=== PATIENT | female | born 1990 | race Caucasian/White ===

== ENCOUNTER 2017-11-18 20:23 | Day surgery (SDC) | payer OTHER ==
[2017-11-18 20:54] VITALS: BMI 31.6
[2017-11-18 21:00] VITALS: TEMP 98.6
--- NOTE | 2017-11-18 21:16 | PDOC.LDHP ---
Labor and Delivery H&P Chief complaint: contractions HPI: Patient is a 27yo, recent immigrant from [place], at 40.1 by 18w1d brian presents with ctx since 0600 that have been every 30 min at first and increased in frequency with some associated discomfort, although she reports they are not strong or extremely painful. She reports yellow vaginal discharge that is thick and mucousy that started about 6h top former. She denies VB, LOF, decreased FM, OBRIEN, scotoma, fever/chills, chest pain, SOB, abd pain, N/V/D, LE swelling, and LE pain. A ten point ROS was performed and negative other than those discussed above. Current gestational age (weeks): 40 (40.1) Due date: 11/17/17 Dating criteria: second trimester ultrasound Grav: 2 Para: 1 OB History Details: 1st : Csection for "low fluid" in [place] with low lying transverse scar Current complications: none Abnormal US findings: No Current medications: pre-yusef vitamins Previous surgical history: low tranverse CS Social history: none - Physical Exam Vital signs reviewed and normal: yes General: NAD, resting, other (talking through ctx) Heart: RRR Lungs: CTAB Abdomen: gravid Extremeties: no edema FHT: category 1 [place] contractions every: q7-8min - Vaginal Exam cm dilated: 1 Effacement: 0% Station: -2 - OB Labs Blood type: O RH: positive Antibody Screen: negative HIV: negative RPR: negative HEPSAg: negative 1 hour GCT: negative GBS: unknown Urine drug screen: not done Rubella: immune - Assessment 27yo at 40.1 by 18.1w brian presents with ctx since 0600. sIUP: IOL reviewed, wnl GBS unk: term, will need chart reviewed on future admission for lab and monitoring Immigration from [place]: quantgold neg, zika neg, dengue fever neg, water treatment technician used for HPI. Labor: Cat 1 strip, Ctx q7-8 min but not painful, talking through them and SVE /. Vaginal d/c sounds like mucousy show. Patient would like to go home. She was given precautions to return to L&D and will be sent home. She has f/u scheduled at [facility] and a balloon induction scheduled on 11/21. Of note, patient desires TOLAC, again discussed risks which she understands. - Plan Plan: observation in L&D <Michelle Caban - Last Filed: 11/18/17 22:05> <Jef Walden - Last Filed: 11/19/17 08:05> Allergies/Adverse Reactions: Allergies Allergy/AdvReac Type Severity Reaction Status Date / Time No Known Allergies Allergy Verified 11/18/17 21:01 Attending Addendum - Attending Addendum Date/Time: 11/19/17 0805 I personally evaluated the patient and discussed the management with Dr. Caban I agree with the History, Examination, Assessment and Plan documented above with any addition or exceptions noted below. <Jef Walden - Last Filed: 11/19/17 08:05>
[2017-11-18 23:14] VITALS: BP 109/67
== END 2017-11-18 22:55 | disposition home or self-care (01) ==
LOC: L&D/OP 20:23
PROVIDERS: ATTEND Obstetrics & Gynecology
DX: O47.1 False labor at or after 37 completed weeks of gestation (principal); Z3A.40 40 weeks gestation of pregnancy; Z98.890 Other specified postprocedural states
CPT/HCPCS: 99283

== ENCOUNTER 2017-11-20 06:20 | Inpatient (IN) | payer MEDICAID, OTHER, SELFPAY ==
[2017-11-20 06:59] VITALS: BMI 31.6
[2017-11-20] MEDS ORDERED: NS / Oxytocin 40 units/1000ml 1,000 ML IV PRN (07:49)
[2017-11-20] MEDS ORDERED: Misoprostol 200 MCG TAB PR PRN (07:49)
[2017-11-20] MEDS ORDERED: Lidocaine 1% (PF) 30 ML VIAL SC PRN (07:49)
[2017-11-20] MEDS ORDERED: Ondansetron HCl/PF 4 MG/2 ML Vial IVP PRN ×4 (07:49→22:44)
[2017-11-20] MEDS ORDERED: Promethazine HCl 25 MG/ML VIAL IM PRN ×3 (07:49→22:44)
[2017-11-20] MEDS ORDERED: Acetaminophen 500 MG TAB PO PRN (07:49)
[2017-11-20] MEDS ORDERED: Ibuprofen 800 MG TAB PO PRN (07:49)
[2017-11-20] MEDS ORDERED: Butorphanol Tartrate 1 MG/ML VIAL SLOW IVP PRN (07:49)
--- NOTE | 2017-11-20 07:53 | PDOC.LDHP ---
Labor and Delivery H&P Chief complaint: contractions HPI: Patient is a 27yo, recent immigrant from [place], at 40.1 by 18w1d sono presents with ctx that have increased in frequency and severity since about 0200. She states she feels the contractions less than 5 minutes apart. She has had some bloody show since last night, no collado of fluids, still feels baby moving. She denies Headache, SOB, visual changes, swelling, fevers, or N/V/D. Current gestational age (weeks): 40 (40.3) Due date: 11/17/17 Dating criteria: last menstrual period, second trimester ultrasound Grav: 2 Para: 1 OB History Details: History of C/S 2/ "low fluid" in [place] on 10/10/15 Scar is low transverse Uncomplicated course, good care Current complications: none Abnormal US findings: No Current medications: pre-yusef vitamins Previous surgical history: low tranverse CS Social history: none - Physical Exam Vital signs reviewed and normal: yes General: NAD, resting, breathing through contractions Heart: RRR Lungs: nonlabored breathing Abdomen: NTTP Extremeties: no edema FHT: category 1 [place] contractions every: 3 minutes - Vaginal Exam cm dilated: 3 Effacement: 90% Station: -3 - OB Labs Blood type: O RH: positive Antibody Screen: negative HIV: negative RPR: negative HEPSAg: negative 1 hour GCT: negative GBS: negative Urine drug screen: not done Rubella: immune - Assessment L&D Assessment: term patient in labor TOLAC - Plan Plan: admit to L&D -: # TOLAC - discussed risks of TOLAC, patient is in understanding may need to do C/S if indicated - 62% chance of success per MFM calculator - IOB labs negative, dating by 18.1 wk US - Anatomy scan unremarkable, hadlock 43% - Consult anesthesia for epidural placement - labor checks q2 hours <Nabor Kuhn - Last Filed: 11/20/17 07:53> - Plan -: At 0840 I evelauated the patient at bedside. I reviewed with her and Dr Kuhn at bedside TOLAC and explained risks and benefits. She is also aware that an elective repeat CS can be performed. She desires TOLAC. Risks of uterine injury/ rupture, decelarations, need for urgent cesrean wityh TOLAC reviewed. Her first CS was not due to FTP but was due to oligo per her verbal report. Had been cleared for TOLAC previously ([facility]). Monitors reviewed at bedside. We will watch closely. Still in latent phase. ACOG Bulletin on from Mar 2017 reviewed with Hattie. <Dirk Reza - Last Filed: 11/20/17 08:46> Allergies/Adverse Reactions: Allergies Allergy/AdvReac Type Severity Reaction Status Date / Time No Known Allergies Allergy Verified 11/20/17 06:53
[2017-11-20] MEDS: Lactated Ringer's 1,000 ML IV SCH ×4 (07:55→19:54)
[2017-11-20 08:24] LABS: Hemoglobin 14.9 g/dL (12.0-16.0); Mean Corpuscular Hemoglobin 32.3 pg (27.0-31.0); Mean Corpuscular Volume 92.4 fL (78.0-98.0); Mean Platelet Volume 8.1 fL (7.4-10.4); Platelet Count 186 thou/uL (130-400); RBC Distribution Width 12.4 % (11.5-14.5); Red Blood Cell (RBC) Count 4.62 mill/uL (4.20-5.40); White Blood Cell (WBC) Count 12.2 thou/uL (4.8-10.8)
--- NOTE | 2017-11-20 08:45 | PDOC.LDPN ---
Labor & Delivery Progress Note - Subjective Subjective: comfortable - Objective Vital signs reviewed and normal: yes General: NAD, resting Dilation: 3 Effacement: 90% Station: -3 FHT: category 2, late decelerations [place] contractions every: q2-3 minutes - Assessment (1) Term Code(s): Z34.80 - ENCOUNTER FOR SUPRVSN OF NORMAL , UNSP TRIMESTER Current Visit: Yes Status: Acute (2) Onset (spontaneous) of labor after 37 completed weeks of gestation but before 39 completed weeks gestation, with delivery by (planned) section , delivered, with mention of complication Code(s): O75.82 - ONSET LABOR 37-39 WEEKS, W DEL BY (PLANNED) SECTION Current Visit: Yes Status: Acute (3) History of delivery Code(s): Z98.891 - HISTORY OF UTERINE SCAR FROM PREVIOUS SURGERY Current Visit : Yes Status: Acute Plan: continue plan of care -: # TOLAC - unchanged from last check, /-3/soft/posterior - late decels noted on monitoring - will watch closely, consider AROM for placement of IUPC/FSE - latent phase, will continue to monitor and consider augmentation if indicated - consult anesthesia for placement of epidural
[2017-11-20] MEDS ORDERED: Lidocaine 1% (PF) 30 ML VIAL ONE (08:47)
[2017-11-20] MEDS ORDERED: DISCONTINUE ALL PREVIOUS NARCOTICS FS SCH (09:00)
[2017-11-20] MEDS ORDERED: Bupivacaine/Epinephrine 0.25% 30 ML VIAL ONE (09:00)
[2017-11-20 09:01] LABS: Syphilis Antibody Nonreactive (Nonreactive); Syphilis Antibody Index 0.04 S/CO (<1.00 Non-Reactive)
[2017-11-20 09:02] LABS: HBSAg Index 0.17 S/CO (0-0.99); Hep B Surf Ag Non-Reactive S/CO (NonReactive)
[2017-11-20] MEDS: Bupivacaine 0.75% 13.4 ML, fentaNYL Citrate/PF 400 MCG in Sodium Chloride 0.9% 78.6 ML EPIDURAL SCH ×2 (10:44→18:29)
--- NOTE | 2017-11-20 10:48 | PDOC.EVN ---
Event Note - Event Note Event Note: Strip check with Buse now. CX now 5cm Will order 500ml IVF bolus due to mild hypotension, likely from vasodilation s/ p VANESSA
[2017-11-20] MEDS ORDERED: Lactated Ringer's 500 ML IV PRN (11:48)
[2017-11-20] MEDS ORDERED: diphenhydrAMINE 50 MG/ML VIAL IVP PRN ×2 (11:48→22:44)
[2017-11-20] MEDS ORDERED: Naloxone HCl 0.4 mg/ml Vial IVP PRN ×4 (11:48→22:44)
[2017-11-20] MEDS ORDERED: Eucerin (Mineral Oil/Petrolatum,White) 30 gm Jar TOP PRN ×2 (11:48→22:44)
[2017-11-20] MEDS ORDERED: Acetaminophen 325 MG TAB PO PRN (11:48)
[2017-11-20] MEDS ORDERED: ePHEDrine/0.9% NaCl/PF SYRINGE 50 mg/10 ml SLOW IVP PRN (11:48)
[2017-11-20] MEDS ORDERED: Communication Order-Pharmacy FS SCH ×2 (12:00→22:45)
[2017-11-20] MEDS ORDERED: fentaNYL Citrate/PF 400 MCG, Bupivacaine 0.5% 20 ML in Sodium Chloride 0.9% 72 ML EPIDURAL SCH (12:00)
--- NOTE | 2017-11-20 12:45 | PDOC.LDPN ---
Labor & Delivery Progress Note - Subjective Subjective: comfortable - Objective Vital signs reviewed and normal: yes (BP: 98/51) General: NAD Dilation: 5 Effacement: 90% Station: -2 FHT: category 2, late decelerations (on/off) [place] contractions every: 2-3 minutes - Assessment (1) Term Code(s): Z34.80 - ENCOUNTER FOR SUPRVSN OF NORMAL , UNSP TRIMESTER Current Visit: Yes Status: Acute (2) Onset (spontaneous) of labor after 37 completed weeks of gestation but before 39 completed weeks gestation, with delivery by (planned) section , delivered, with mention of complication Code(s): O75.82 - ONSET LABOR 37-39 WEEKS, W DEL BY (PLANNED) SECTION Current Visit: Yes Status: Acute (3) History of delivery Code(s): Z98.891 - HISTORY OF UTERINE SCAR FROM PREVIOUS SURGERY Current Visit : Yes Status: Acute Plan: continue plan of care -: # TOLAC - unchanged from last check, /-2/soft/mid - late decels on and off again, changing positions frequently - if unchanged at next check will plan for AROM - veronica frequently, pit not indicated at this time - epidural in place
--- NOTE | 2017-11-20 13:24 | PDOC.LDPN ---
Labor & Delivery Progress Note - Subjective Subjective: comfortable - Objective Vital signs reviewed and normal: yes General: NAD Effacement: 90% Station: 0 FHT: category 2, late decelerations [place] contractions every: 3-4 min - Assessment (1) Term Code(s): Z34.80 - ENCOUNTER FOR SUPRVSN OF NORMAL , UNSP TRIMESTER Current Visit: Yes Status: Acute (2) Onset (spontaneous) of labor after 37 completed weeks of gestation but before 39 completed weeks gestation, with delivery by (planned) section , delivered, with mention of complication Code(s): O75.82 - ONSET LABOR 37-39 WEEKS, W DEL BY (PLANNED) SECTION Current Visit: Yes Status: Acute (3) History of delivery Code(s): Z98.891 - HISTORY OF UTERINE SCAR FROM PREVIOUS SURGERY Current Visit : Yes Status: Acute Plan: continue plan of care -: # TOLAC - progressed to /0 - bloody show - Dr. Reza checked patient 2/2 period of decreased variability, resolved with position change - late decels still on and off again, continue changing positions frequently - Membranes intact - veronica frequently, pit not indicated at this time - epidural in place
--- NOTE | 2017-11-20 14:37 | PDOC.LDPN ---
Labor & Delivery Progress Note - Subjective Subjective: comfortable - Objective Vital signs reviewed and normal: yes General: NAD Dilation: 8 Effacement: 90% Station: 0 FHT: category 2, late decelerations (on/off) [place] contractions every: q2-3 min - Assessment (1) Term Code(s): Z34.80 - ENCOUNTER FOR SUPRVSN OF NORMAL , UNSP TRIMESTER Current Visit: Yes Status: Acute (2) Onset (spontaneous) of labor after 37 completed weeks of gestation but before 39 completed weeks gestation, with delivery by (planned) section , delivered, with mention of complication Code(s): O75.82 - ONSET LABOR 37-39 WEEKS, W DEL BY (PLANNED) SECTION Current Visit: Yes Status: Acute (3) History of delivery Code(s): Z98.891 - HISTORY OF UTERINE SCAR FROM PREVIOUS SURGERY Current Visit : Yes Status: Acute
[2017-11-20] MEDS ORDERED: Ondansetron HCl/PF 4 MG/2 ML Vial ONE (15:04)
[2017-11-20] MEDS ORDERED: Ketorolac Tromethamine 30 MG/ML VIAL ONE (15:04)
[2017-11-20] MEDS ORDERED: PHENYLEPHRINE-NS 100 MCG/ML 10 ML SYRINGE ONE (15:04)
--- NOTE | 2017-11-20 16:12 | PDOC.LDPN ---
Labor & Delivery Progress Note - Subjective Subjective: comfortable - Objective Vital signs reviewed and normal: yes Dilation: 9 Effacement: 90% Station: 0 FHT: category 2, early decelerations, variable decelerations, late decelerations (on/off w/ position changes) [place] contractions every: 3-4 min - Assessment (1) Term Code(s): Z34.80 - ENCOUNTER FOR SUPRVSN OF NORMAL , UNSP TRIMESTER Current Visit: Yes Status: Acute (2) Onset (spontaneous) of labor after 37 completed weeks of gestation but before 39 completed weeks gestation, with delivery by (planned) section , delivered, with mention of complication Code(s): O75.82 - ONSET LABOR 37-39 WEEKS, W DEL BY (PLANNED) SECTION Current Visit: Yes Status: Acute (3) History of delivery Code(s): Z98.891 - HISTORY OF UTERINE SCAR FROM PREVIOUS SURGERY Current Visit : Yes Status: Acute Plan: continue plan of care -: # TOLAC - progressed to /0 - SROM at 1400 - late decels still on and off again, continue changing positions frequently - some variables and early decels - epidural in place - will re-check shortly and begin pushing pending cervical dilation
--- NOTE | 2017-11-20 17:49 | PDOC.EVN ---
Event Note - Event Note Event Note: Pitocin ordered for assistance in descent at second stage.
[2017-11-20] MEDS: NS w/ Oxytocin 10 units 500 ML IV SCH (17:57)
--- NOTE | 2017-11-20 19:35 | PDOC.EVN ---
Event Note - Event Note Event Note: Labor check: Patient seen at bedside. Discussed plan. We are treating a s a functional primigravida as first labor process (TOLAC #1). 4 hours at second stage (VANESSA in use) will be at around 2100. We will recheck cervix at 2030 and see if ready to push and determine is there is some descent. May consider repeat CS if no descent past 2100 due to prolonged second stage. Strip reviewed. D/W Dr Finley, who is the resident front office assistant.
--- NOTE | 2017-11-20 20:59 | PDOC.LDPN ---
Labor & Delivery Progress Note - Subjective Subjective: comfortable - Objective Vital signs reviewed and normal: yes General: NAD Uterine fundus: palpable contractions Dilation: complete Effacement: 0% Station: 0 FHT: category 2 (baseline 150, moderate, early decel with occasional late. ), late decelerations [place] contractions every: 2-3 min Other exam findings: bloody show. - Assessment (1) Term Code(s): Z34.80 - ENCOUNTER FOR SUPRVSN OF NORMAL , UNSP TRIMESTER Current Visit: Yes Status: Acute Comment: no change in 4 hours at 2nd stage. occasional lates. patient agrees with plan for C/S due to arrest of descent/prolonged 2nd stage/unsuccessful TOLAC. (2) History of delivery Code(s): Z98.891 - HISTORY OF UTERINE SCAR FROM PREVIOUS SURGERY Current Visit : Yes Status: Acute -: Discussed case with Dr. Reza who was in agreement. <David Finley - Last Filed: 11/20/17 20:56> Plan: other (I have discussed repeat CS with the patient in beninese at bedside. DX: failure to descend at second stage despite pitocin, unsuccessful TOLAC; prolonged second stage. VANESSA in use. Anesthesia called (they said it will take 25 -20 minutes). Patient Q&A done.) -: ZMAX and ancef ordered per CSOAP trial data. <Dirk Reza - Last Filed: 11/20/17 21:16>
[2017-11-20] MEDS ORDERED: CEFAZOLIN/Water 2 GM/20 ML SYRINGE SLOW IVP SCH (21:00)
[2017-11-20] MEDS ORDERED: Azithromycin 500 MG in Sodium Chloride 0.9% 250 ML 250 ML IVPB SCH (21:00)
[2017-11-20] MEDS ORDERED: Fentanyl 100 MCG/2 ML VIAL ONE ×2 (21:11→21:22)
[2017-11-20] MEDS ORDERED: Morphine PF 1 MG/ML SYR ONE ×2 (21:23→21:39)
[2017-11-20] MEDS ORDERED: Oxytocin 10 UNITS/ML VIAL ONE (21:37)
--- NOTE | 2017-11-20 22:38 | PDOC.EVN ---
Event Note - Event Note Event Note: Faculty CS Note: DX: prolonged second stage, failure to descend, unsuccessful TOLAC Procedure: repeat LTCS (double layer closure) Procedure details: I was scrubbed and participated with repeat LTCS of this patient. Surgeon: Tushar with Shereen assist. I performed second layer hysterotomy closure after Tushar closed first layer. Delivery by Tushar and shereen under my direct supervision. craissa Campo, MS3 present and scrubbed as well- as observer. EBL 800 IVF 600 120ml sterile saline placed into bladder back fill via lin to assess bladder dome...no suspicison for invasion was present but we did that as it did not look like bladder was emptying well and urine predelivery slighly bloody. No complications Anesthesia: VANESSA in use Counts correct Please see full dictation Skin sutured and DB placed To RR in good and stable condition
[2017-11-20] MEDS ORDERED: HYDROmorphone 2 MG/ML VIAL SLOW IVP PRN (22:44)
[2017-11-20] MEDS ORDERED: Promethazine HCl 25 MG SUPP PR PRN (22:44)
[2017-11-20] MEDS ORDERED: Naloxone HCl 0.4 mg/ml Vial IV PRN (22:44)
[2017-11-20] MEDS ORDERED: Meperidine HCl/PF 25 MG/ML VIAL SLOW IVP PRN (22:44)
[2017-11-21] MEDS ORDERED: HYDROcodone/Acetaminophen 5/325 mg Tablet PO PRN ×2 (00:55)
[2017-11-21] MEDS ORDERED: diphenhydrAMINE 25 MG CAP PO PRN (00:55)
--- NOTE | 2017-11-21 03:37 | OP-2 ---
DATE OF PROCEDURE: 11/20/2017 SURGEON: David Finley M.D. [facility] TECHNICAL ARCHITECT: Marina Pinto D.O. ATTENDING: Dirk Reza M.D. MEDICAL STUDENT OBSERVER: Nighat Campo MS3. PROCEDURE: Repeat low-transverse after failed trial of labor after . PREOPERATIVE DIAGNOSES: 1. Term intrauterine in labor. 2. History of prior section. 3. Arrest of descent secondary to cephalopelvic disproportion. 4. Prolonged second stage of labor. POSTOPERATIVE DIAGNOSES: 1. Term intrauterine in labor. 2. Marked bladder adhesions. 3. Thick meconium stained fluid. 4. History of prior section. 5. Arrest of descent secondary to cephalopelvic disproportion. 6. Prolonged second stage of labor. ANESTHESIA: Epidural anesthesia. INDICATIONS: Ms. Rohit Crawley is a 27-year-old G2, P1 at 40.1 weeks who presented to Labor and Delivery in active labor. She had been scheduled for induction for trial of labor after on 11/21/2017. Patient had a completely dilated cervix at approximately 1700 hours on 11/20/2017. However, after 4 hours of passive and active labor, she remained at 0 station. A discussion was had with the patient who agreed to proceed with repeat section at this time. Baby was beginning to have occasional late decelerations. PROCEDURE IN DETAIL: The risks, benefits, and alternatives were explained to the patient using supervisor assembly department. She provided an informed consent. Preoperative antibiotics of cefazolin 2 grams and azithromycin 500 mg were given prior to the procedure. Patient was taken to the OR and her epidural was bolused. She was placed in the supine position with left lateral tilt and prepped and draped in the usual sterile fashion. Pfannenstiel incision was made along her previous scar and was sharply carried down to the level of fascia, which was nicked with the scalpel. A subcutaneous fat was dissected away from the fascia and the fascia was cut and extended bilaterally with Fraser scissors. Inferior and superior edges of the fascia were elevated with Cami clamps and the underlying rectus muscle was bluntly and sharply dissected free. The rectus muscles were divided digitally and retracted manually. The peritoneum was entered bluntly. At this time, it is noted that the bladder had several adhesions along the lower uterine segment and was more superior than it was to be expected. However, there was no concern for bladder injury. An Tj O retractor was inserted. Low-transverse score was made with scalpel. The uterus was entered bluntly and thick-meconium stained fluid was noted. Hysterotomy was extended manually in the caudal/cranial fashion. The was noted to be in vertex and was easily delivered with fundal pressure. Mouth and nares were bulb suctioned. Delayed cord clamping was utilized for approximately 30 seconds. Cord was then cut and clamped, and the child was handed to the awaiting nursery team. Cord gas segment was obtained; however, the blood clotted within the cord and it was unable to be processed. Cord blood was also sent for type and screen. Placenta was extracted manually intact with 3-vessel cord noted. The uterus was curetted with a dry lap. The apices were identified with ring forceps. The hysterotomy was closed using a 1- 0 Vicryl in the running locking fashion. A second imbricating layer was performed by Dr. Reza using 1-0 Vicryl to achieve hemostasis. The abdomen was irrigated and suctioned free of clots. At this time, hysterotomy was noted to be hemostatic. The Tj O retractor was removed at this time. To test the integrity of the bladder dome 120 mL of sterile saline was flushed through the Pantoja. No leakage from the bladder or obvious injury to the bladder was noted at this time. The lower portion of the rectus muscles reapproximated using 1-0 chromic in the running fashion. The fascia was closed using a running nonlocking PDS. The subcutaneous layer was suctioned free, was irrigated, and bleeders were controlled with hemostasis. Skin was reapproximated using a subcuticular 4-0 Monocryl and Dermabond. Counts were correct x3. Patient tolerated the procedure well and was taken to recovery room in stable condition. ESTIMATED BLOOD LOSS: 800 mL. INCISION TIME: 2143. TIME OF : 2154. COMPLICATIONS: None. SPECIMEN: Cord blood sent for gas analysis and type and screen. As previously mentioned, the blood in the cord segment had clotted, was unable to be used. FINDINGS: Grossly normal viable female infant with Apgars of 9 and 9 at one and five minutes respectively, meconium-stained endometrium, thick-meconium stained fluid. Grossly normal meconium-stained placenta with three-vessel cord sent to pathology. DRAINS: Pantoja catheter to gravity draining blood-tinged urine. As previously mentioned, the bladder was back filled with 120 mL of sterile saline and noted to be intact. Crystalloid given during case [address] Reza was present in the OR for the entire case. Dr. Reza broke scrub after reapproximation of the rectus muscles. [facility] [place] [facility]
[2017-11-21] MEDS ORDERED: Ketorolac Tromethamine 30 MG/ML VIAL IVP PRN (04:00)
[2017-11-21] MEDS: Lactated Ringer's 1,000 ML IV SCH (04:59)
[2017-11-21] MEDS: Ketorolac Tromethamine 30 MG/ML VIAL IVP PRN ×3 (05:10→17:42)
[2017-11-21 05:54] LABS: Mean Corpuscular HGB CONC 34.9 g/dL (32.0-36.0); Mean Corpuscular Hemoglobin 32.5 pg (27.0-31.0); Mean Corpuscular Volume 93.4 fL (78.0-98.0); Mean Platelet Volume 7.6 fL (7.4-10.4); Platelet Count 161 thou/uL (130-400); RBC Distribution Width 12.3 % (11.5-14.5); Red Blood Cell (RBC) Count 3.69 mill/uL (4.20-5.40); White Blood Cell (WBC) Count 13.9 thou/uL (4.8-10.8)
[2017-11-21] MEDS ORDERED: Ibuprofen 800 MG TAB PO SCH (06:00)
--- NOTE | 2017-11-21 06:46 | PDOC.PP ---
Post Progress Note Post Day #: less than 12 hours Subjective: doing well PO intake tolerated: yes Flatus: yes Ambulation: yes Vital Signs (12 hours) Temp Pulse Resp BP 11/21/17 05:26 16 11/21/17 03:10 98.3 F 97 16 92/53 L 11/21/17 02:10 99.1 F 94 16 99/54 L 11/21/17 01:10 98.6 F 82 16 94/52 L 11/20/17 19:45 98.5 F 93 18 Weight Weight 141 lb - Physical Examination General: NAD Cardiovascular: no m/r/g Respiratory: clear to auscultation bilaterally Abdominal: + bowel sounds, no distention, appropriately TTP Extremities: negative homans (B) Neurological: no gross focal deficits Psychiatric: A&Ox3, normal affect Result Diagrams: 11/21/17 05:42 Additional Labs: Post Labs Blood Type O POSITIVE 11/20/17 08:19 Hep Bs Antigen Non-Reactive S/CO (NonReactive) 11/20/17 08:19 (1) Status post repeat low transverse section Code(s): Z98.891 - HISTORY OF UTERINE SCAR FROM PREVIOUS SURGERY Status: Acute - Assessment/Plan Unsuccessful TOLAC, s/p repeat CS at second stage. S/P Zmax and ancef intraoperative. Postop day 12 hours...follow temps for now.
--- NOTE | 2017-11-21 07:06 | PDOC.PP ---
Post Progress Note Post Day #: 14 hours Subjective: pain controlled. no concerns. PO intake tolerated: yes Flatus: no Ambulation: no Vital Signs (12 hours) Temp Pulse Resp BP 11/21/17 05:26 16 11/21/17 03:10 98.3 F 97 16 92/53 L 11/21/17 02:10 99.1 F 94 16 99/54 L 11/21/17 01:10 98.6 F 82 16 94/52 L 11/20/17 19:45 98.5 F 93 18 Weight Weight 63.957 kg - Physical Examination General: NAD Cardiovascular: no m/r/g, RRR Respiratory: clear to auscultation bilaterally, non-labored breathing Abdominal: + bowel sounds, lochia, no distention, appropriately TTP Neurological: no gross focal deficits Psychiatric: A&Ox3, normal affect Result Diagrams: 11/21/17 05:42 Additional Labs: Post Labs Blood Type O POSITIVE 11/20/17 08:19 Hep Bs Antigen Non-Reactive S/CO (NonReactive) 11/20/17 08:19 (1) Term Code(s): Z34.80 - ENCOUNTER FOR SUPRVSN OF NORMAL , UNSP TRIMESTER Status: Acute Comment: PP course unremarkable to date. monitor vitals. Encouraged ambulation. D/C lin as once ambulatory. Discussed with Dr. Reza. (2) History of delivery Code(s): Z98.891 - HISTORY OF UTERINE SCAR FROM PREVIOUS SURGERY Status: Acute
[2017-11-21] MEDS ORDERED: Adacel (T-DAP) 0.5 ML VIAL IM ONE (09:00)
[2017-11-21] MEDS: Docusate Calcium (SURFAK) 240 MG CAP PO SCH ×2 (10:14→23:06)
[2017-11-21] MEDS: Prenatal Vitamin 1 TAB PO SCH (10:15)
[2017-11-21] MEDS: NS w/ Oxytocin 10 units 500 ML IV SCH (18:16)
[2017-11-22] MEDS: Lactated Ringer's 1,000 ML IV SCH ×3 (06:09→18:29)
[2017-11-22] MEDS: Ibuprofen 800 MG TAB PO SCH ×3 (06:09→21:33)
[2017-11-22] MEDS ORDERED: Sodium Chloride 0.9% 10 ML ONE (06:10)
--- NOTE | 2017-11-22 06:28 | PDOC.PP ---
Post Progress Note Post Day #: 2 Subjective: Pt. states that she did well overnight. She has a little abdominal pain at rest and some with walking. Pain is improving. She has passed flatus. She denies difficulty breathing. She denies in bleeding over her incision site. She denies any abnormal vaginal discharge or bleeding. PO intake tolerated: yes Flatus: yes Ambulation: yes Vital Signs (12 hours) Temp Pulse Resp BP Pulse Ox 11/22/17 04:00 98.9 F 105 H 18 100/54 L 11/22/17 00:45 99.0 F 114 H 20 97/52 L 11/21/17 19:45 98.1 F 98 20 95/50 L 98 Weight Weight 63.957 kg - Physical Examination Cardiovascular: RRR Respiratory: clear to auscultation bilaterally, non-labored breathing Abdominal: + bowel sounds, no distention (Mild pain with palpation and abdomen manipulation) Fundus firm & at: umbilicus Skin: CS incision dry & intact, no rash Neurological: no gross focal deficits Psychiatric: A&Ox3, normal affect Result Diagrams: 11/21/17 05:42 Additional Labs: Post Labs Blood Type O POSITIVE 11/20/17 08:19 Hep Bs Antigen Non-Reactive S/CO (NonReactive) 11/20/17 08:19 (1) Status post repeat low transverse section Code(s): Z98.891 - HISTORY OF UTERINE SCAR FROM PREVIOUS SURGERY Status: Acute (2) Term Code(s): Z34.80 - ENCOUNTER FOR SUPRVSN OF NORMAL , UNSP TRIMESTER Status: Acute Comment: PP course unremarkable to date. monitor vitals. Encouraged ambulation. D/C lin as once ambulatory. Discussed with Dr. Reza. - Assessment/Plan 1. Repeat Encourage ambulation, drinking fluids, tylenol for pain management, breast feeding, Pulse mildly elevated; will monitor Disposition: likely discharge tomorrow Family: Mother in room <Chicho Trevizo - Last Filed: 11/22/17 06:19> Weight Weight 63.957 kg Result Diagrams: 11/21/17 05:42 Additional Labs: Post Labs Blood Type O POSITIVE 11/20/17 08:19 Hep Bs Antigen Non-Reactive S/CO (NonReactive) 11/20/17 08:19 <Nitin Brantley - Last Filed: 11/25/17 08:07> Attending Addendum - Attending Addendum Date/Time: 11/25/17805 I have evaluated the patient and discussed the management with Dr. Trevizo. I agree with the History, Examination, Assessment and Plan. <Nitin Brantley - Last Filed: 11/25/17 08:07>
[2017-11-22] MEDS: Docusate Calcium (SURFAK) 240 MG CAP PO SCH ×2 (09:54→21:33)
[2017-11-22] MEDS: Prenatal Vitamin 1 TAB PO SCH (09:54)
[2017-11-22] MEDS: NS w/ Oxytocin 10 units 500 ML IV SCH (18:30)
[2017-11-23] MEDS: Lactated Ringer's 1,000 ML IV SCH (01:05)
[2017-11-23] MEDS: Ibuprofen 800 MG TAB PO SCH (06:04)
--- NOTE | 2017-11-23 06:46 | PDOC.PP ---
Post Progress Note Post Day #: 3 Subjective: Pt. states that she did well overnight. She denies dyspnea, chest pain, nausea, vomiting. She has been ambulating well and states that her pain is decreasing. She denies lower extremity swelling. PO intake tolerated: yes Flatus: yes Ambulation: yes Vital Signs (12 hours) Temp Pulse Resp BP 11/22/17 20:03 98.4 F 94 18 110/54 L Weight Weight 63.957 kg - Physical Examination General: NAD Cardiovascular: no m/r/g, RRR Respiratory: clear to auscultation bilaterally, non-labored breathing Abdominal: + bowel sounds, no distention Fundus firm & at: umbilicus Extremities: negative homans (B) Skin: CS incision dry & intact, no rash Neurological: no gross focal deficits Psychiatric: A&Ox3, normal affect Result Diagrams: 11/21/17 05:42 Additional Labs: Post Labs Blood Type O POSITIVE 11/20/17 08:19 Hep Bs Antigen Non-Reactive S/CO (NonReactive) 11/20/17 08:19 (1) Status post repeat low transverse section Code(s): Z98.891 - HISTORY OF UTERINE SCAR FROM PREVIOUS SURGERY Status: Acute (2) Term Code(s): Z34.80 - ENCOUNTER FOR SUPRVSN OF NORMAL , UNSP TRIMESTER Status: Acute Comment: PP course unremarkable to date. Vital signs stable, pain is reduced from the day before. Discharge home today, encourage fluid intake and ambulation, encourage follow up. Pt. states that she would like to use the pill for control. <Chicho Trevizo - Last Filed: 11/23/17 06:43> Vital Signs (12 hours) Temp Pulse Resp BP 11/22/17 20:03 98.4 F 94 18 110/54 L Weight Weight 141 lb Result Diagrams: 11/21/17 05:42 Additional Labs: Post Labs Blood Type O POSITIVE 11/20/17 08:19 Hep Bs Antigen Non-Reactive S/CO (NonReactive) 11/20/17 08:19 <Cindy Alaniz - Last Filed: 11/23/17 07:37> Attending Addendum - Attending Addendum Date/Time: 11/23/17 0737 I personally evaluated the patient and discussed the management with Dr. Trevizo. I agree with the History, Examination, Assessment and Plan documented above. D/ c home. <Cindy Alaniz - Last Filed: 11/23/17 07:37>
[2017-11-23 07:52] VITALS: BP 101/58; TEMP 98.3
[2017-11-23] MEDS: Prenatal Vitamin 1 TAB PO SCH (09:55)
[2017-11-23] MEDS: Docusate Calcium (SURFAK) 240 MG CAP PO SCH (09:56)
== END 2017-11-23 12:20 | disposition home or self-care (01) | DRG 766 ==
LOC: L&D/OP 06:20 → L&D 09:19 → 3SW 11-21 01:10
PROVIDERS: ADMIT Obstetrics & Gynecology; ATTEND Obstetrics & Gynecology
PROC: 10D00Z1 Extraction of Products of Conception, Low, Open Approach (ICD-10-PCS; principal; 2017-11-20)
DX: O75.82 Onset (spontaneous) of labor after 37 completed weeks of gestation but before 39 completed weeks gestation, with delivery by (planned) cesarean section (principal); O65.5 Obstructed labor due to abnormality of maternal pelvic organs; O34.211 Maternal care for low transverse scar from previous cesarean delivery; N85.8 Other specified noninflammatory disorders of uterus; O66.41 Failed attempted vaginal birth after previous cesarean delivery; O62.1 Secondary uterine inertia; O63.1 Prolonged second stage (of labor); Z3A.40 40 weeks gestation of pregnancy; Z37.0 Single live birth; O99.613 Diseases of the digestive system complicating pregnancy, third trimester; K66.0 Peritoneal adhesions (postprocedural) (postinfection); O77.0 Labor and delivery complicated by meconium in amniotic fluid; O76 Abnormality in fetal heart rate and rhythm complicating labor and delivery; O90.89 Other complications of the puerperium, not elsewhere classified; I95.9 Hypotension, unspecified
CPT/HCPCS: 36415; 51702; 85027; 86780; 86850; 86900; 86901; 87340; 88307; 99285; A4216; J0131; J0456; J1885; J2001; J2274; J2405; J2590; J3010; J7050